=== PATIENT | male | born 1945 | race Two or more races ===

== ENCOUNTER 2024-06-04 03:27 | Inpatient (IN) | payer MEDICARE, OTHER ==
[~2024-06-04] VITALS: Ht 167.6 cm; Wt 120.2 kg
[2024-06-04 04:05] LABS: BASOPHILS # (AUTO) 0.1 K/uL (0.0-0.2); BASOPHILS % (AUTO) 1.8 % (0.0-2.0); EOSINOPHILS # (AUTO) 0.5 K/uL (0.0-0.7); EOSINOPHILS % (AUTO) 8.7 % (0.0-6.0); HEMATOCRIT 41 % (39-51); LYMPHOCYTES # (AUTO) 1.4 K/uL (0.8-4.8); LYMPHOCYTES % (AUTO) 22.6 % (20.0-44.0); MEAN CORPUSCULAR HEMOGLOBIN 26 PG (26.0-33.0); MEAN CORPUSCULAR HGB CONC 32 g/dl (31.0-36.0); MEAN CORPUSCULAR VOLUME 80 fL (80-96); MONOCYTES # (AUTO) 0.6 K/uL (0.1-1.30); MONOCYTES % (AUTO) 9.7 % (2.0-12.0); NEUTROPHILS # (AUTO) 3.4 K/uL (1.8-8.9); NEUTROPHILS % (AUTO) 57.2 % (43.0-81.0); PLATELET COUNT (AUTO) 174 K/uL (150-450); RED BLOOD CELL COUNT(AUTO) 5.07 MIL/uL (4.5-6.0); RED CELL DISTRIBUTION WIDTH 20.7 % (11.5-15.0)
[2024-06-04 04:18] LABS: INR 1.03 (0.91-1.10); PARTIAL THROMBOPLASTIN TIME 28.8 SEC (24.3-34.3); PROTHROMBIN TIME 10.9 SECS (9.2-11.1)
[2024-06-04 04:21] LABS: ALANINE AMINOTRANSFERASE 18 U/L (12-78); ALKALINE PHOSPHATASE 111 U/L (46-116); ASPARTATE AMINOTRANSFERASE 28 U/L (15-37); BILIRUBIN,DIRECT 0.1 mg/dL (0.0-0.2); BILIRUBIN,TOTAL 0.6 mg/dL (0.2-1.0); CALCIUM, SERUM 9.1 mg/dL (8.5-10.1); CARBON DIOXIDE 33 mmol/L (21-32); CHLORIDE 92 mmol/L (98-107); GLUCOSE 80 mg/dL (74-106); LIPASE 50 U/L (16-77); POTASSIUM 4.7 mmol/L (3.5-5.1); SODIUM SERUM 136 mmol/L (136-145); TOTAL PROTEIN, SERUM 7.8 g/dL (6.4-8.2); UREA NITROGEN, BLOOD 56 mg/dL (7-18)
[2024-06-04 04:24] LABS: CREATININE 8.9 mg/dL (0.6-1.3)
[2024-06-04] MEDS ORDERED: DEXTROSE 50%-WATER 50 ML DISP.SYRIN ONE (04:47)
[2024-06-04] MEDS: DEXTROSE 50%-WATER 50 ML DISP.SYRIN IVP ONE (04:49)
[2024-06-04] MEDS ORDERED: DEXTROSE 50%-WATER 50 ML DISP.SYRIN IV PRN (05:30)
[2024-06-04] MEDS ORDERED: ACETAMINOPHEN 325 MG TABLET PO PRN (05:30)
[2024-06-04] MEDS ORDERED: MAGNESIUM HYDROXIDE 30 ML UDC PO PRN (05:30)
[2024-06-04] MEDS ORDERED: MAG HYDROX/AL HYDROX/SIMETH 30 ML UDC PO PRN (05:30)
[2024-06-04] MEDS ORDERED: ONDANSETRON HCL/PF 4 MG/2 ML VIAL IVP PRN (05:30)
[2024-06-04] MEDS ORDERED: Z GUARD REMEDY 4 OZ OINT TP PRN (05:30)
[2024-06-04] MEDS: DEXTROSE 10% IN WATER 250 ML BAG IV ONE (06:01)
[2024-06-04] MEDS ORDERED: TAMS-12 PO (08:30)
[2024-06-04] MEDS ORDERED: INSU100V7 SQ (08:30)
[2024-06-04] MEDS ORDERED: LINA72CA PO (08:30)
[2024-06-04] MEDS ORDERED: CETI1DRO EACHEYE (08:30)
[2024-06-04] MEDS ORDERED: FURO-144 PO (08:30)
[2024-06-04] MEDS ORDERED: CLON0.2T PO (08:30)
[2024-06-04] MEDS ORDERED: EMPA10TA PO (08:30)
[2024-06-04] MEDS ORDERED: LABE100T5 PO (08:30)
[2024-06-04] MEDS ORDERED: METO25TA6 PO (08:30)
[2024-06-04] MEDS ORDERED: ALLO100T PO (08:30)
[2024-06-04] MEDS ORDERED: MINO10TA2 PO (08:30)
[2024-06-04] MEDS ORDERED: CLOP75TA15 PO (08:30)
[2024-06-04] MEDS ORDERED: MELA1TAB47 PO (08:30)
[2024-06-04] MEDS ORDERED: FOLI0.8T2 PO (08:30)
[2024-06-04] MEDS ORDERED: MULT-225 PO (08:30)
[2024-06-04] MEDS ORDERED: SENN-261 PO (08:30)
[2024-06-04] MEDS ORDERED: DEXL60CA3 PO (08:30)
[2024-06-04] MEDS ORDERED: FERR325T28 PO (08:30)
[2024-06-04] MEDS ORDERED: BENA40TA8 PO (08:30)
[2024-06-04] MEDS ORDERED: ACET-868 PO (08:30)
[2024-06-04] MEDS ORDERED: AMLO5TAB4 PO (08:30)
[2024-06-04] MEDS ORDERED: INSU100V39 SQ ×2 (08:30)
[2024-06-04] MEDS ORDERED: PIOG15TA8 PO (08:30)
[2024-06-04] MEDS ORDERED: ATOR10TA PO (08:30)
[2024-06-04] MEDS ORDERED: MAGN400O6 PO (08:30)
[2024-06-04] MEDS ORDERED: NA P133E RC (08:30)
[2024-06-04] MEDS ORDERED: ERGO500093 PO (08:30)
[2024-06-04] MEDS ORDERED: CALC667T8 PO (08:30)
[2024-06-04] MEDS ORDERED: BISA10SU11 RC (08:30)
[2024-06-04] MEDS ORDERED: ACET-2030 PO (08:30)
[2024-06-04] MEDS: BLOOD SUGAR DIAGNOSTIC 1 EACH STRIP IN SCH (09:38)
[2024-06-04 12:00] VITALS: BP 133/57; TEMP 98.3; O2SAT 98
[2024-06-04 16:00] VITALS: BP 131/51; TEMP 97.9; O2SAT 95
[2024-06-04] MEDS: METOPROLOL TARTRATE 25 MG TABLET PO SCH (17:08)
[2024-06-04] MEDS: MINOXIDIL (2.5MG) 2.5 MG TABLET PO SCH (17:08)
[2024-06-04 20:00] VITALS: BP 140/64; TEMP 98.6; O2SAT 99
[2024-06-04] MEDS: ATORVASTATIN 10 MG TABLET PO SCH (22:39)
[2024-06-04] MEDS: TAMSULOSIN 0.4 MG CAP.SR.24H PO SCH (22:39)
[2024-06-05] VITALS: BP 150/60; TEMP 98.4; O2SAT 97
[2024-06-05 04:39] VITALS: BP 130/50; TEMP 98.3; O2SAT 97
[2024-06-05 06:33] LABS: BASOPHILS % (AUTO) 1.2 % (0.0-2.0); EOSINOPHILS # (AUTO) 0.4 K/uL (0.0-0.7); EOSINOPHILS % (AUTO) 10.6 % (0.0-6.0); HEMATOCRIT 35 % (39-51); HEMOGLOBIN 11.6 g/dL (13.5-17.5); LYMPHOCYTES # (AUTO) 1.3 K/uL (0.8-4.8); LYMPHOCYTES % (AUTO) 37.2 % (20.0-44.0); MEAN CORPUSCULAR HEMOGLOBIN 26 PG (26.0-33.0); MEAN CORPUSCULAR HGB CONC 33 g/dl (31.0-36.0); MEAN CORPUSCULAR VOLUME 79 fL (80-96); MONOCYTES # (AUTO) 0.6 K/uL (0.1-1.30); NEUTROPHILS # (AUTO) 1.3 K/uL (1.8-8.9); PLATELET COUNT (AUTO) 171 K/uL (150-450); RED BLOOD CELL COUNT(AUTO) 4.48 MIL/uL (4.5-6.0); RED CELL DISTRIBUTION WIDTH 20.6 % (11.5-15.0); WHITE BLOOD COUNT (AUTO) 3.6 K/uL (4.3-11.0)
[2024-06-05 06:44] LABS: CALCIUM, SERUM 8.9 mg/dL (8.5-10.1); CREATININE 6.3 mg/dL (0.6-1.3); MAGNESIUM 2.3 mg/dL (1.8-2.4); PHOSPHORUS 3.5 mg/dL (2.5-4.9); POTASSIUM 4.2 mmol/L (3.5-5.1)
[2024-06-05 08:00] VITALS: BP 153/60; TEMP 97.5; O2SAT 97
[2024-06-05 08:11] LABS: ANISOCYTOSIS 1+; EOSINOPHILS % (MANUAL) 9 % (0-4); LYMPHOCYTES % (MANUAL) 40 % (16-48); MONOCYTES % (MANUAL) 16 % (0-11.0); NEUTROPHILS % (MANUAL) 35 (42-76); PLATELET ESTIMATE ADEQUATE
[2024-06-05] MEDS: PIOGLITAZONE HCL 15 MG TABLET PO SCH (09:00)
[2024-06-05] MEDS: EMPAGLIFLOZIN 10 MG TABLET PO SCH (09:00)
[2024-06-05] MEDS: AMLODIPINE BESYLATE 5 MG TABLET PO SCH (09:00)
[2024-06-05] MEDS: CLOPIDOGREL BISULFATE 75 MG TABLET PO SCH (10:02)
[2024-06-05] MEDS: ALLOPURINOL 100 MG TABLET PO SCH (10:02)
[2024-06-05 10:28] LABS: CALCIUM, SERUM 8.5 mg/dL (8.5-10.1); CREATININE 6.7 mg/dL (0.6-1.3); POTASSIUM 4.4 mmol/L (3.5-5.1)
[2024-06-05 12:00] VITALS: BP 142/60; TEMP 98.2; O2SAT 97
[2024-06-05] MEDS: INSULIN REGULAR, HUMAN 100 UNIT/ML 3 ML VIAL SQ PRN (14:12)
[2024-06-05 16:00] VITALS: BP 142/60; TEMP 98.2; O2SAT 97
== END 2024-06-05 15:58 | DRG 637 ==
LOC: ER 03:32 → MEDSG1 05:42 → TELE1 09:14
PROVIDERS: ADMIT Nurse Practitioner Family; ATTEND Nurse Practitioner Family
PROC: 5A1D70Z Performance of Urinary Filtration, Intermittent, Less than 6 Hours Per Day (ICD-10-PCS; principal; 2024-06-04)
DX: E11.649 Type 2 diabetes mellitus with hypoglycemia without coma (principal); G93.41 Metabolic encephalopathy; I12.0 Hypertensive chronic kidney disease with stage 5 chronic kidney disease or end stage renal disease; E78.5 Hyperlipidemia, unspecified; N18.6 End stage renal disease; N40.0 Benign prostatic hyperplasia without lower urinary tract symptoms; K21.9 Gastro-esophageal reflux disease without esophagitis; E11.22 Type 2 diabetes mellitus with diabetic chronic kidney disease; E83.9 Disorder of mineral metabolism, unspecified; D63.1 Anemia in chronic kidney disease; Z88.0 Allergy status to penicillin; Z99.2 Dependence on renal dialysis; I25.10 Atherosclerotic heart disease of native coronary artery without angina pectoris; E87.79 Other fluid overload; Z79.4 Long term (current) use of insulin
CPT/HCPCS: 36415; 70450-TC; 71045-TC; 80048-TC; 80076-TC; 82962-TC; 83690-TC; 83735-TC; 84100-TC; 84484-TC; 85025-TC; 85730-TC; 90935-TC; G0378; J1815; J7030

== ENCOUNTER 2024-08-12 07:27 | Inpatient (IN) | payer MEDICARE, OTHER ==
[~2024-08-12] VITALS: Ht 165.1 cm; Wt 73.5 kg
[~2024-08-12 07:27] MED LIST: ACET-2030 PO; ACET-868 PO; ALLO100T PO; AMLO5TAB4 PO; ATOR10TA PO; BENA40TA8 PO; BISA10SU11 RC; CALC667T8 PO; CETI1DRO EACHEYE; CLON0.2T PO; CLOP75TA15 PO; DEXL60CA3 PO; EMPA10TA PO; ERGO500093 PO; FERR325T28 PO; FOLI0.8T2 PO; FURO-144 PO; INSU100V39 SQ; LINA72CA PO; MELA1TAB47 PO; METO25TA6 PO; MINO10TA2 PO; MULT-225 PO; NA P133E RC; PIOG15TA8 PO; SENN-261 PO; TAMS-12 PO
[2024-08-12 08:10] LABS: PLATELET COUNT (AUTO) 233 K/uL (150-450); RED BLOOD CELL COUNT(AUTO) 4.61 MIL/uL (4.5-6.0); RED CELL DISTRIBUTION WIDTH 21.2 % (11.5-15.0); WHITE BLOOD COUNT (AUTO) 8.4 K/uL (4.3-11.0)
[2024-08-12 08:18] LABS: CALCIUM, SERUM 9.0 mg/dL (8.5-10.1); CREATININE 6.7 mg/dL (0.6-1.3); SODIUM SERUM 141 mmol/L (136-145); UREA NITROGEN, BLOOD 39 mg/dL (7-18)
[2024-08-12 08:24] LABS: ALCOHOL, BLOOD < 3 mg/dL (0-10)
[2024-08-12 08:26] LABS: ASPARTATE AMINOTRANSFERASE 25 U/L (15-37); TOTAL PROTEIN, SERUM 8.0 g/dL (6.4-8.2)
[2024-08-12] MEDS ORDERED: INSU100V39 SQ (09:06)
[2024-08-12 10:10] VITALS: BP 152/68; TEMP 97.9; O2SAT 99
[2024-08-12] MEDS ORDERED: NA PHOS,M-B/NA PHOS,DI-BA 1 EA ENEMA RC PRN (11:30)
[2024-08-12] MEDS ORDERED: ACETAMINOPHEN 325 MG TABLET PO PRN (11:30)
[2024-08-12] MEDS ORDERED: ERGOCALCIFEROL (VITAMIN D 2) 50,000 UNIT CAPSULE PO SCH (11:30)
[2024-08-12] MEDS ORDERED: PANTOPRAZOLE 40 MG TABLET.DR PO SCH (11:30)
[2024-08-12] MEDS ORDERED: Z GUARD REMEDY 4 OZ OINT TP PRN (11:30)
[2024-08-12] MEDS ORDERED: MAG HYDROX/AL HYDROX/SIMETH 30 ML UDC PO PRN (11:30)
[2024-08-12] MEDS ORDERED: HOME MED MISCELLANEOUS XX SCH ×2 (11:30)
[2024-08-12] MEDS ORDERED: BISACODYL SUPP (10 MG) 10 MG/SUPP.RECT SUPP.RECT RC PRN (11:30)
[2024-08-12] MEDS ORDERED: MAGNESIUM HYDROXIDE 30 ML UDC PO PRN (11:30)
[2024-08-12] MEDS ORDERED: DEXTROSE 50%-WATER 50 ML DISP.SYRIN IV PRN (12:00)
[2024-08-12] MEDS: BLOOD SUGAR DIAGNOSTIC 1 EACH STRIP IN SCH (14:05)
[2024-08-12] MEDS: CALCIUM ACETATE 667 MG CAP/TAB PO SCH (14:05)
[2024-08-12] MEDS: FERROUS SULFATE (325 MG) 325 MG/TAB TABLET PO SCH (14:05)
[2024-08-12] MEDS: ONDANSETRON HCL/PF 4 MG/2 ML VIAL IVP PRN (16:03)
[2024-08-12] MEDS: METOPROLOL TARTRATE 25 MG TABLET PO SCH (17:29)
[2024-08-12] MEDS: FUROSEMIDE 40 MG TABLET PO SCH (17:29)
[2024-08-12] MEDS: BENAZEPRIL HCL 20 MG TABLET PO SCH (17:30)
[2024-08-12] MEDS: SENNOSIDES 8.6 MG TABLET PO SCH (17:30)
[2024-08-12] MEDS: PANTOPRAZOLE 40 MG TABLET.DR PO SCH (18:31)
[2024-08-12] MEDS: GLUCERNA SHAKE 237 ML CAN PO SCH (19:01)
[2024-08-12 20:00] VITALS: BP 117/47; TEMP 100.2; O2SAT 97
[2024-08-12] MEDS: TAMSULOSIN 0.4 MG CAP.SR.24H PO SCH (22:04)
[2024-08-12] MEDS: ATORVASTATIN 10 MG TABLET PO SCH (22:04)
[2024-08-13] VITALS (9 sets, daily range): BP systolic 115–153; BP diastolic 47–56; TEMP 98.1–98.4; O2SAT 93–97
[2024-08-13 07:22] LABS: PLATELET COUNT (AUTO) 199 K/uL (150-450); RED BLOOD CELL COUNT(AUTO) 4.11 MIL/uL (4.5-6.0); RED CELL DISTRIBUTION WIDTH 21.3 % (11.5-15.0); WHITE BLOOD COUNT (AUTO) 7.5 K/uL (4.3-11.0)
[2024-08-13 07:41] LABS: CALCIUM, SERUM 8.2 mg/dL (8.5-10.1); PHOSPHORUS 4.1 mg/dL (2.5-4.9); SODIUM SERUM 137 mmol/L (136-145); UREA NITROGEN, BLOOD 58 mg/dL (7-18)
[2024-08-13 08:25] LABS: CREATININE 8.4 mg/dL (0.6-1.3)
[2024-08-13] MEDS: ALLOPURINOL 100 MG TABLET PO SCH (08:45)
[2024-08-13] MEDS: VIT B CMPLX 3/FA/VIT C/BIOTIN 1 TAB TABLET PO SCH (08:45)
[2024-08-13] MEDS: PIOGLITAZONE HCL 15 MG TABLET PO SCH (08:45)
[2024-08-13] MEDS: CLOPIDOGREL BISULFATE 75 MG TABLET PO SCH (08:45)
[2024-08-13] MEDS: AMLODIPINE BESYLATE 5 MG TABLET PO SCH (08:45)
[2024-08-13] MEDS: CLONIDINE HCL 0.1 MG TABLET PO SCH (08:46)
[2024-08-13] MEDS: EMPAGLIFLOZIN 10 MG TABLET PO SCH (08:49)
[2024-08-13] MEDS ORDERED: DEXTROSE 50%-WATER 50 ML DISP.SYRIN IV PRN (10:30)
[2024-08-13] MEDS ORDERED: DOSING PER PHARMACY-CEFEPIME IVPB XX PRN (10:30)
[2024-08-13] MEDS ORDERED: GUAIFENESIN/D-METHORPHAN HB 5 ML UDC PO PRN (10:30)
[2024-08-13] MEDS ORDERED: IPRATROPIUM NEB FS 0.5 MG/2.5 ML AMPUL.NEB NEB PRN (10:30)
[2024-08-13] MEDS ORDERED: ALBUTEROL FS 2.5 MG/3 ML VIAL.NEB NEB PRN (10:30)
[2024-08-13] MEDS: BLOOD SUGAR DIAGNOSTIC 1 EACH STRIP IN SCH (11:25)
[2024-08-13] MEDS: INSULIN REGULAR, HUMAN 100 UNIT/ML 3 ML VIAL SQ PRN (11:25)
[2024-08-13] MEDS: CEFEPIME 1 GM in IV D5W 50 ML IV SCH (12:00)
[2024-08-13 16:10] LABS: APPEARANCE,URINE CLEAR (CLEAR); BLOOD, URINE 1+ Ery/uL (NEGATIVE); LEUKOCYTE ESTERASE ,URINE NEGATIVE (NEGATIVE); NITRITE, URINE NEGATIVE (NEGATIVE); UGLUCOSE 1+ mg/dL (NEGATIVE)
[2024-08-13 17:42] LABS: ADD URINE CULTURE NO; SQUAMOUS EPITHELIAL CELL,UR Rare /HPF (None Seen)
[2024-08-14 07:30] LABS: PLATELET COUNT (AUTO) 184 K/uL (150-450); RED BLOOD CELL COUNT(AUTO) 3.69 MIL/uL (4.5-6.0); RED CELL DISTRIBUTION WIDTH 21.0 % (11.5-15.0); WHITE BLOOD COUNT (AUTO) 6.4 K/uL (4.3-11.0)
[2024-08-14 07:39] LABS: CALCIUM, SERUM 8.7 mg/dL (8.5-10.1); CREATININE 6.7 mg/dL (0.6-1.3); PHOSPHORUS 3.0 mg/dL (2.5-4.9); SODIUM SERUM 140.0 mmol/L (136-145); UREA NITROGEN, BLOOD 46.0 mg/dL (7-18)
[2024-08-14 08:00] VITALS: BP 157/58; TEMP 99.7; O2SAT 94
[2024-08-14 16:00] VITALS: BP 137/54; TEMP 98.2; O2SAT 96
[2024-08-15] VITALS: BP 148/56; TEMP 98.6; O2SAT 94
[2024-08-15 08:00] VITALS: BP 178/59; TEMP 98.6; O2SAT 95
[2024-08-15 10:10] LABS: CALCIUM, SERUM 8.7 mg/dL (8.5-10.1); SODIUM SERUM 139 mmol/L (136-145); UREA NITROGEN, BLOOD 73 mg/dL (7-18)
[2024-08-15 10:31] LABS: CREATININE 9.2 mg/dL (0.6-1.3)
[2024-08-15 16:05] VITALS: BP 153/53; TEMP 98.1; O2SAT 100
[2024-08-15 18:40] LABS: CALCIUM, SERUM 8.8 mg/dL (8.5-10.1); CREATININE 5.6 mg/dL (0.6-1.3); SODIUM SERUM 139.0 mmol/L (136-145); UREA NITROGEN, BLOOD 44.0 mg/dL (7-18)
[2024-08-15 20:00] VITALS: BP 185/65; TEMP 98.2; O2SAT 99
[2024-08-15 20:20] VITALS: BP 199/66; O2SAT 99
[2024-08-15] MEDS: HYDROCODONE/APAP 5/325MG TABLET PO PRN (21:02)
[2024-08-15] MEDS: TEMAZEPAM 15 MG CAPSULE PO PRN (21:03)
[2024-08-16 04:00] VITALS: BP 176/63; TEMP 98.2; O2SAT 99
[2024-08-16 04:07] LABS: HEPATITIS B CORE AB, TOTAL Positive (Negative); HEPATITIS B SURFACE AB (QUAL) Non Reactive (.)
[2024-08-16 07:39] LABS: ASPARTATE AMINOTRANSFERASE 22.0 U/L (15-37); CALCIUM, SERUM 8.7 mg/dL (8.5-10.1); CREATININE 7.0 mg/dL (0.6-1.3); PHOSPHORUS 4.1 mg/dL (2.5-4.9); SODIUM SERUM 138.0 mmol/L (136-145); TOTAL PROTEIN, SERUM 7.1 g/dL (6.4-8.2); UREA NITROGEN, BLOOD 56.0 mg/dL (7-18)
[2024-08-16 08:00] VITALS: BP 175/60; TEMP 98.1; O2SAT 95
[2024-08-16 09:45] VITALS: BP 175/61; TEMP 98.3; O2SAT 98
[2024-08-16] MEDS: hydrALAZINE HCL IV 20 MG VIAL IV PRN (10:16)
[2024-08-16 12:00] VITALS: BP 169/69; TEMP 98.4; O2SAT 97
[2024-08-16] MEDS: AMLODIPINE BESYLATE 5 MG TABLET PO ONE (12:00)
[2024-08-16 17:30] VITALS: BP 184/74; TEMP 97.8; O2SAT 97
[2024-08-16] MEDS: LORAZEPAM 0.5 MG TABLET PO ONE (18:52)
[2024-08-16 19:45] VITALS: BP 154/61; TEMP 97.7; O2SAT 97
== END 2024-08-16 19:53 | DRG 177 ==
LOC: ER 07:33 → TELE1 09:33 → MEDSG1 10:46
PROVIDERS: ADMIT Nurse Practitioner Acute Care; ATTEND Nurse Practitioner Acute Care
PROC: 5A1D70Z Performance of Urinary Filtration, Intermittent, Less than 6 Hours Per Day (ICD-10-PCS; principal; 2024-08-13)
DX: J15.69 Pneumonia due to other Gram-negative bacteria (principal); G92.8 Other toxic encephalopathy; N18.6 End stage renal disease; I12.0 Hypertensive chronic kidney disease with stage 5 chronic kidney disease or end stage renal disease; E11.649 Type 2 diabetes mellitus with hypoglycemia without coma; D64.9 Anemia, unspecified; E11.22 Type 2 diabetes mellitus with diabetic chronic kidney disease; E78.5 Hyperlipidemia, unspecified; I25.10 Atherosclerotic heart disease of native coronary artery without angina pectoris; K21.9 Gastro-esophageal reflux disease without esophagitis; Z79.84 Long term (current) use of oral hypoglycemic drugs; Z86.73 Personal history of transient ischemic attack (TIA), and cerebral infarction without residual deficits; Z88.0 Allergy status to penicillin; Z99.2 Dependence on renal dialysis; N40.0 Benign prostatic hyperplasia without lower urinary tract symptoms; E83.9 Disorder of mineral metabolism, unspecified; E87.79 Other fluid overload; Z79.4 Long term (current) use of insulin; F01.50 Vascular dementia, unspecified severity, without behavioral disturbance, psychotic disturbance, mood disturbance, and anxiety
CPT/HCPCS: 36415; 70450-TC; 71045-TC; 80048-TC; 80053-TC; 80076-TC; 81001; 82962-TC; 83690-TC; 83735-TC; 84100-TC; 84439-TC; 84443-TC; 84484-TC; 85025-TC; 86704; 86706; 87081-TC; 87340; 90935-TC; 97112-TC; 97116-TC; 97530-TC; 97535-TC; A4223; A6403; G0378; G0480; J0360; J0692; J1815; J2405; J7030; J7040; J7050; J7060

== ENCOUNTER 2024-10-04 09:43 | Inpatient (IN) | payer MEDICARE, OTHER ==
[~2024-10-04] VITALS: Ht 167.6 cm; Wt 71.7 kg
[~2024-10-04 09:43] MED LIST changes: -LINA72CA PO; -MULT-225 PO
[2024-10-04 10:23] LABS: PLATELET COUNT (AUTO) 159 K/uL (150-450); RED BLOOD CELL COUNT(AUTO) 5.12 MIL/uL (4.5-6.0); RED CELL DISTRIBUTION WIDTH 20.7 % (11.5-15.0); WHITE BLOOD COUNT (AUTO) 3.4 K/uL (4.3-11.0)
[2024-10-04 10:31] LABS: CALCIUM, SERUM 9.2 mg/dL (8.5-10.1); SODIUM SERUM 140 mmol/L (136-145)
[2024-10-04 10:38] LABS: UREA NITROGEN, BLOOD 75 mg/dL (7-18)
[2024-10-04 10:39] LABS: CREATININE 9.9 mg/dL (0.6-1.3)
[2024-10-04] MEDS ORDERED: MINO2.5T PO (10:39)
[2024-10-04] MEDS ORDERED: GUAI-1189 PO (10:39)
[2024-10-04] MEDS ORDERED: LINA72CA PO (10:39)
[2024-10-04] MEDS ORDERED: MECL-159 PO (10:39)
[2024-10-04] MEDS ORDERED: ASCO500T21 PO (10:39)
[2024-10-04] MEDS ORDERED: TAVA10SO2 TP (10:39)
[2024-10-04] MEDS ORDERED: ATOR40TA PO (10:39)
[2024-10-04] MEDS ORDERED: VORT10TA PO (10:39)
[2024-10-04] MEDS ORDERED: GLIP10TA11 PO (10:39)
[2024-10-04 10:53] LABS: LACTIC ACID 1.7 mmol/L (0.4-2.0)
[2024-10-04] MEDS ORDERED: ACETAMINOPHEN 325 MG TABLET PO PRN (11:30)
[2024-10-04] MEDS ORDERED: ONDANSETRON HCL/PF 4 MG/2 ML VIAL IVP PRN (11:30)
[2024-10-04] MEDS ORDERED: MAGNESIUM HYDROXIDE 30 ML UDC PO PRN (11:30)
[2024-10-04] MEDS ORDERED: CETIRIZINE HCL EACHEYE PRN (11:30)
[2024-10-04] MEDS ORDERED: MAG HYDROX/AL HYDROX/SIMETH 30 ML UDC PO PRN (11:30)
[2024-10-04] MEDS ORDERED: MECLIZINE HCL 25 MG TABLET PO PRN (11:30)
[2024-10-04] MEDS ORDERED: ZOLPIDEM TARTRATE 5 MG TABLET PO PRN (11:30)
[2024-10-04] MEDS ORDERED: NA PHOS,M-B/NA PHOS,DI-BA 1 EA ENEMA RC PRN (11:30)
[2024-10-04] MEDS ORDERED: Z GUARD REMEDY 4 OZ OINT TP PRN (11:30)
[2024-10-04] MEDS ORDERED: BISACODYL SUPP (10 MG) 10 MG/SUPP.RECT SUPP.RECT RC PRN (11:30)
[2024-10-04] MEDS: BLOOD SUGAR DIAGNOSTIC 1 EACH STRIP IN SCH ×2 (12:31→17:11)
[2024-10-04 13:00] VITALS: BP 180/72; TEMP 97.5; O2SAT 96
[2024-10-04] MEDS ORDERED: DEXTROSE 50%-WATER 50 ML DISP.SYRIN IV PRN (13:00)
[2024-10-04] MEDS ORDERED: *INSULIN REGULAR(HUMULIN R)HUM 100 UNIT/ML VIAL SQ PRN (13:00)
[2024-10-04] MEDS ORDERED: INSULIN REGULAR, HUMAN 100 UNIT/ML 3 ML VIAL SQ PRN (13:00)
[2024-10-04] MEDS: CALCIUM ACETATE 667 MG CAP/TAB PO SCH (13:04)
[2024-10-04] MEDS: FERROUS SULFATE (325 MG) 325 MG/TAB TABLET PO SCH (13:04)
[2024-10-04 16:00] VITALS: BP 186/71; TEMP 97.9; O2SAT 96
[2024-10-04] MEDS: MINOXIDIL (2.5MG) 2.5 MG TABLET PO SCH (16:56)
[2024-10-04] MEDS: FUROSEMIDE 40 MG TABLET PO SCH (16:59)
[2024-10-04] MEDS: LISINOPRIL (20MG) 20 MG TABLET PO SCH (17:00)
[2024-10-04] MEDS: METOPROLOL TARTRATE 25 MG TABLET PO SCH (17:00)
[2024-10-04] MEDS: BLOOD SUGAR DIAGNOSTIC 1 EACH STRIP VI SCH (17:01)
[2024-10-04] MEDS: INSULIN REGULAR, HUMAN 100 UNIT/ML 3 ML VIAL SQ PRN (17:12)
[2024-10-04 20:00] VITALS: BP 154/72; TEMP 98.1; O2SAT 94
[2024-10-05] VITALS: BP 180/73; TEMP 98.4; O2SAT 90
[2024-10-05] MEDS: DEXTROSE 50%-WATER 50 ML DISP.SYRIN IV PRN ×2 (02:07→18:39)
[2024-10-05] MEDS ORDERED: DEXTROSE 50%-WATER 50 ML DISP.SYRIN IV PRN (02:30)
[2024-10-05] MEDS ORDERED: INSULIN REGULAR, HUMAN 100 UNIT/ML 3 ML VIAL SQ PRN (02:30)
[2024-10-05] MEDS ORDERED: BLOOD SUGAR DIAGNOSTIC 1 EACH STRIP IN SCH (02:30)
[2024-10-05] MEDS: ATORVASTATIN 40 MG TABLET PO SCH (02:49)
[2024-10-05] MEDS: TAMSULOSIN 0.4 MG CAP.SR.24H PO SCH (02:49)
[2024-10-05] MEDS: HEPARIN SODIUM, PORCINE 5000 UNITS/1 ML VIAL SQ SCH (02:51)
[2024-10-05] MEDS: BLOOD SUGAR DIAGNOSTIC 1 EACH STRIP IN SCH (03:37)
[2024-10-05 04:00] VITALS: BP 150/49; TEMP 98.2; O2SAT 95
[2024-10-05] MEDS: PANTOPRAZOLE 40 MG TABLET.DR PO SCH (06:33)
[2024-10-05 06:43] LABS: PLATELET COUNT (AUTO) 131 K/uL (150-450); RED BLOOD CELL COUNT(AUTO) 5.19 MIL/uL (4.5-6.0); RED CELL DISTRIBUTION WIDTH 20.7 % (11.5-15.0); WHITE BLOOD COUNT (AUTO) 3.9 K/uL (4.3-11.0)
[2024-10-05 07:05] LABS: CALCIUM, SERUM 8.9 mg/dL (8.5-10.1); CREATININE 6.7 mg/dL (0.6-1.3); PHOSPHORUS 3.4 mg/dL (2.5-4.9); SODIUM SERUM 137.0 mmol/L (136-145); UREA NITROGEN, BLOOD 41.0 mg/dL (7-18)
[2024-10-05 08:00] VITALS: BP 167/61; TEMP 98.4; O2SAT 98
[2024-10-05] MEDS: CLONIDINE HCL 0.1 MG TABLET PO SCH (08:19)
[2024-10-05] MEDS: ASCORBIC ACID 500 MG TABLET PO SCH (08:20)
[2024-10-05] MEDS: ALLOPURINOL 100 MG TABLET PO SCH (08:21)
[2024-10-05] MEDS: CLOPIDOGREL BISULFATE 75 MG TABLET PO SCH (08:21)
[2024-10-05] MEDS: AMLODIPINE BESYLATE 5 MG TABLET PO SCH (08:21)
[2024-10-05] MEDS: PIOGLITAZONE HCL 15 MG TABLET PO SCH (08:21)
[2024-10-05] MEDS ORDERED: Medication Not On Formulary EA (Linaclotide (Linzess) 72 MCG) PO SCH (09:00)
[2024-10-05 12:15] VITALS: BP 114/48; TEMP 98.6; O2SAT 96
[2024-10-05 16:00] VITALS: BP 137/50; TEMP 98.8; O2SAT 96
[2024-10-05] MEDS: INSULIN REGULAR, HUMAN 100 UNIT/ML 3 ML VIAL SQ PRN (18:39)
[2024-10-05 20:00] VITALS: BP 133/61; TEMP 97.7; O2SAT 100
[2024-10-06] VITALS (7 sets, daily range): BP systolic 112–164; BP diastolic 46–79; TEMP 97.2–98.2; O2SAT 97–100
[2024-10-06 04:47] LABS: PLATELET COUNT (AUTO) 117 K/uL (150-450); RED BLOOD CELL COUNT(AUTO) 4.54 MIL/uL (4.5-6.0); RED CELL DISTRIBUTION WIDTH 19.6 % (11.5-15.0); WHITE BLOOD COUNT (AUTO) 4.1 K/uL (4.3-11.0)
[2024-10-06 05:02] LABS: CALCIUM, SERUM 8.9 mg/dL (8.5-10.1); SODIUM SERUM 136 mmol/L (136-145); UREA NITROGEN, BLOOD 54 mg/dL (7-18)
[2024-10-06 05:05] LABS: CREATININE 8.7 mg/dL (0.6-1.3); PHOSPHORUS 4.7 mg/dL (2.5-4.9)
[2024-10-06] MEDS: METOPROLOL TARTRATE 25 MG TABLET PO SCH (08:43)
[2024-10-06] MEDS ORDERED: IV NS 0.9% 250 ML IV ONE (10:50)
[2024-10-06] MEDS ORDERED: IOHEXOL-350 100 ML VIAL IV ONE (10:50)
[2024-10-06] MEDS ORDERED: NITROGLYCERIN 0.4 MG/TAB BOTTLE ONE (11:09)
[2024-10-06] MEDS ORDERED: METOPROLOL TARTRATE INJ 5 MG/5 ML AMPUL ONE ×2 (11:09→11:17)
[2024-10-06] MEDS: METOPROLOL TARTRATE INJ 5 MG/5 ML AMPUL IVP PRN (11:10)
[2024-10-06] MEDS: NITROGLYCERIN 0.4 MG/TAB BOTTLE SL ONE (11:26)
[2024-10-07] VITALS: BP 135/53; TEMP 98; O2SAT 98
[2024-10-07 04:00] VITALS: BP 130/55; TEMP 98.1; O2SAT 98
[2024-10-07 06:06] LABS: CALCIUM, SERUM 8.9 mg/dL (8.5-10.1); PHOSPHORUS 3.7 mg/dL (2.5-4.9); SODIUM SERUM 136 mmol/L (136-145); UREA NITROGEN, BLOOD 53 mg/dL (7-18)
[2024-10-07 06:16] LABS: CREATININE 8.4 mg/dL (0.6-1.3)
[2024-10-07 06:26] LABS: PLATELET COUNT (AUTO) 123 K/uL (150-450); RED BLOOD CELL COUNT(AUTO) 4.11 MIL/uL (4.5-6.0); RED CELL DISTRIBUTION WIDTH 20.5 % (11.5-15.0); WHITE BLOOD COUNT (AUTO) 2.5 K/uL (4.3-11.0)
[2024-10-07 08:00] VITALS: BP 155/58; TEMP 98.1; O2SAT 97
[2024-10-07 08:34] LABS: CALCIUM, SERUM 8.9 mg/dL (8.5-10.1); SODIUM SERUM 135 mmol/L (136-145); UREA NITROGEN, BLOOD 55 mg/dL (7-18)
[2024-10-07 08:38] LABS: CREATININE 8.7 mg/dL (0.6-1.3)
[2024-10-07 08:51] LABS: EOSINOPHILS % (MANUAL) 5 % (0-4); LYMPHOCYTES % (MANUAL) 41 % (16-48); MONOCYTES % (MANUAL) 10 % (0-11.0); NEUTROPHILS % (MANUAL) 44 (42-76)
[2024-10-07 08:52] LABS: PLATELET ESTIMATE DECREASED
[2024-10-07] MEDS: SODIUM ZIRCONIUM CYCLOSILICATE 5 GM POWD.PACK PO ONE (08:53)
[2024-10-07 09:36] LABS: PLATELET COUNT (AUTO) 121 K/uL (150-450); RED BLOOD CELL COUNT(AUTO) 4.25 MIL/uL (4.5-6.0); RED CELL DISTRIBUTION WIDTH 20.3 % (11.5-15.0); WHITE BLOOD COUNT (AUTO) 2.4 K/uL (4.3-11.0)
[2024-10-07 10:02] LABS: CALCIUM, SERUM 8.7 mg/dL (8.5-10.1); SODIUM SERUM 135 mmol/L (136-145); UREA NITROGEN, BLOOD 56 mg/dL (7-18)
[2024-10-07 10:03] LABS: CREATININE 8.8 mg/dL (0.6-1.3)
[2024-10-07 12:00] VITALS: BP 150/48; TEMP 98.1; O2SAT 100
[2024-10-07 16:00] VITALS: BP 145/50; TEMP 98.4; O2SAT 100
[2024-10-07 20:00] VITALS: BP 134/50; TEMP 97.9; O2SAT 98
[2024-10-08] VITALS: BP 155/56; TEMP 98.1; O2SAT 97
[2024-10-08 04:00] VITALS: BP 144/60; TEMP 97.9; O2SAT 95
[2024-10-08] MEDS: GUAIFENESIN/D-METHORPHAN HB 5 ML UDC PO PRN (06:06)
[2024-10-08 07:06] LABS: PLATELET COUNT (AUTO) 152 K/uL (150-450); RED BLOOD CELL COUNT(AUTO) 4.32 MIL/uL (4.5-6.0); RED CELL DISTRIBUTION WIDTH 20.1 % (11.5-15.0); WHITE BLOOD COUNT (AUTO) 2.8 K/uL (4.3-11.0)
[2024-10-08 07:32] LABS: CALCIUM, SERUM 9.1 mg/dL (8.5-10.1); PHOSPHORUS 3.1 mg/dL (2.5-4.9); SODIUM SERUM 133 mmol/L (136-145)
[2024-10-08 07:43] LABS: UREA NITROGEN, BLOOD 71 mg/dL (7-18)
[2024-10-08 07:50] LABS: CREATININE 10.1 mg/dL (0.6-1.3)
[2024-10-08 08:00] VITALS: BP 144/56; TEMP 97.9; O2SAT 97
[2024-10-08] MEDS: AMLODIPINE BESYLATE 5 MG TABLET PO SCH (08:36)
[2024-10-08 12:00] VITALS: BP 115/47; TEMP 97.5; O2SAT 98
[2024-10-08 16:00] VITALS: BP 119/49; TEMP 97.6; O2SAT 96
[2024-10-08 20:00] VITALS: BP 134/62; TEMP 97.9; O2SAT 98
[2024-10-09] VITALS (8 sets, daily range): BP systolic 116–146; BP diastolic 43–69; TEMP 97.2–98.1; O2SAT 97–100
[2024-10-09 07:08] LABS: PLATELET COUNT (AUTO) 150 K/uL (150-450); RED BLOOD CELL COUNT(AUTO) 4.18 MIL/uL (4.5-6.0); RED CELL DISTRIBUTION WIDTH 20.0 % (11.5-15.0); WHITE BLOOD COUNT (AUTO) 2.3 K/uL (4.3-11.0)
[2024-10-09 07:13] LABS: CALCIUM, SERUM 8.9 mg/dL (8.5-10.1); CREATININE 7.0 mg/dL (0.6-1.3); PHOSPHORUS 2.8 mg/dL (2.5-4.9); SODIUM SERUM 133.0 mmol/L (136-145); UREA NITROGEN, BLOOD 44.0 mg/dL (7-18)
[2024-10-09 09:42] LABS: EOSINOPHILS % (MANUAL) 10 % (0-4); LYMPHOCYTES % (MANUAL) 53 % (16-48); MONOCYTES % (MANUAL) 12 % (0-11.0); NEUTROPHILS % (MANUAL) 25 (42-76)
[2024-10-09 09:43] LABS: PLATELET ESTIMATE ADEQUATE
[2024-10-10] VITALS: BP 143/51; TEMP 97.5; O2SAT 100
[2024-10-10 04:00] VITALS: BP 154/59; TEMP 97.8; O2SAT 100
[2024-10-10 06:42] LABS: PLATELET COUNT (AUTO) 158 K/uL (150-450); RED BLOOD CELL COUNT(AUTO) 3.96 MIL/uL (4.5-6.0); RED CELL DISTRIBUTION WIDTH 20.2 % (11.5-15.0); WHITE BLOOD COUNT (AUTO) 3.2 K/uL (4.3-11.0)
[2024-10-10 06:49] LABS: CALCIUM, SERUM 8.7 mg/dL (8.5-10.1); PHOSPHORUS 3.2 mg/dL (2.5-4.9); SODIUM SERUM 135 mmol/L (136-145)
[2024-10-10 07:01] LABS: UREA NITROGEN, BLOOD 60 mg/dL (7-18)
[2024-10-10 07:12] LABS: CREATININE 9.3 mg/dL (0.6-1.3)
[2024-10-10 08:18] VITALS: BP 154/52; TEMP 98.4; O2SAT 99
[2024-10-10] MEDS: SODIUM ZIRCONIUM CYCLOSILICATE 10 GM POWD.PACK PO ONE (11:02)
[2024-10-10 12:17] VITALS: BP 117/50; TEMP 99; O2SAT 98
[2024-10-10] MEDS: ACETAMINOPHEN ES 500 MG TABLET PO PRN (13:11)
[2024-10-10 16:21] VITALS: BP 123/50; TEMP 98.8; O2SAT 97
[2024-10-10 20:00] VITALS: BP 169/55; TEMP 97.5; O2SAT 98
[2024-10-11] VITALS: BP 147/48; TEMP 97.5; O2SAT 99
[2024-10-11 04:00] VITALS: BP 149/53; TEMP 97.5; O2SAT 98
[2024-10-11 06:49] LABS: PLATELET COUNT (AUTO) 185 K/uL (150-450); RED BLOOD CELL COUNT(AUTO) 4.28 MIL/uL (4.5-6.0); RED CELL DISTRIBUTION WIDTH 19.8 % (11.5-15.0); WHITE BLOOD COUNT (AUTO) 2.9 K/uL (4.3-11.0)
[2024-10-11 07:02] LABS: ASPARTATE AMINOTRANSFERASE 15.0 U/L (15-37); CALCIUM, SERUM 8.8 mg/dL (8.5-10.1); CREATININE 6.9 mg/dL (0.6-1.3); PHOSPHORUS 3.0 mg/dL (2.5-4.9); SODIUM SERUM 140.0 mmol/L (136-145); TOTAL PROTEIN, SERUM 6.7 g/dL (6.4-8.2); UREA NITROGEN, BLOOD 36.0 mg/dL (7-18)
[2024-10-11 08:00] VITALS: BP 156/57; TEMP 97.9; O2SAT 94
[2024-10-11 20:00] VITALS: BP 129/36; TEMP 97.6; O2SAT 97
[2024-10-12] VITALS: BP 118/70; TEMP 97.5; O2SAT 96
[2024-10-12 04:00] VITALS: BP 122/91; TEMP 97.3; O2SAT 97
[2024-10-12 08:00] VITALS: BP 188/67; TEMP 97.7; O2SAT 97
[2024-10-12] MEDS ORDERED: PIOG30TA10 PO (11:16)
[2024-10-12] MEDS ORDERED: METO25TA20 PO (11:16)
[2024-10-12] MEDS ORDERED: AMLO-212 PO (11:16)
[2024-10-12 12:00] VITALS: BP 154/69; TEMP 97.7; O2SAT 99
[2024-10-12 16:00] VITALS: BP 148/53; TEMP 97.9; O2SAT 99
[2024-10-12 16:30] VITALS: BP 148/53
== END 2024-10-12 17:55 | DRG 637 ==
LOC: ER 09:49 → TELE1 11:29
PROVIDERS: ADMIT Student in an Organized Health Care Education/Training Program; ATTEND Internal Medicine
PROC: 5A1D70Z Performance of Urinary Filtration, Intermittent, Less than 6 Hours Per Day (ICD-10-PCS; principal; 2024-10-04)
DX: E11.649 Type 2 diabetes mellitus with hypoglycemia without coma (principal); G93.41 Metabolic encephalopathy; I21.A1 Myocardial infarction type 2; I12.0 Hypertensive chronic kidney disease with stage 5 chronic kidney disease or end stage renal disease; E87.1 Hypo-osmolality and hyponatremia; E11.22 Type 2 diabetes mellitus with diabetic chronic kidney disease; N18.6 End stage renal disease; K21.9 Gastro-esophageal reflux disease without esophagitis; N40.0 Benign prostatic hyperplasia without lower urinary tract symptoms; D64.9 Anemia, unspecified; E78.5 Hyperlipidemia, unspecified; E87.5 Hyperkalemia; I25.10 Atherosclerotic heart disease of native coronary artery without angina pectoris; Z79.84 Long term (current) use of oral hypoglycemic drugs; Z99.2 Dependence on renal dialysis; E83.89 Other disorders of mineral metabolism; E87.70 Fluid overload, unspecified; Z86.73 Personal history of transient ischemic attack (TIA), and cerebral infarction without residual deficits; Z88.0 Allergy status to penicillin
CPT/HCPCS: 36415; 36600; 71045-TC; 75574; 80048-TC; 80053-TC; 82803-TC; 82962-TC; 83605-TC; 83735-TC; 84100-TC; 84443-TC; 84484-TC; 85025-TC; 85027-TC; 87040-TC; 87081-TC; 90935-TC; 93307-TC; G0378; J1644; J1815; J3490; J7030; J7050; Q9967